=== PATIENT | male | born 1975 | race Caucasian/White ===

== ENCOUNTER 2018-02-21 03:14 | Inpatient (IN) | payer MEDICAID ==
[~2018-02-21] VITALS: Ht 162.6 cm; Wt 71.0 kg
[2018-02-21 04:28] LABS: BASOPHIL % 0.4 % (0-2); PLATELET COUNT 174 x10^3mcL (130-400); RED CELL DISTRIBUTION WIDTH 12.8 % (11.5-14.5)
[2018-02-21 04:33] LABS: CALCIUM 8.8 mg/dL (8.5-10.1); CARBON DIOXIDE 27.2 mmol/L (21-32); CHLORIDE SERUM 103 mmol/L (98-107); CREATININE SERUM 0.8 mg/dL (0.7-1.3); GFR1 > 60 mL/min; GLUCOSE SERUM 99 mg/dL (74-106); POTASSIUM SERUM 3.8 mmol/L (3.5-5.1); SODIUM SERUM 137 mmol/L (136-145)
[2018-02-21 04:39] LABS: ALKALINE PHOSPHATASE 80 U/L (46-116); ALT/SGPT 27 U/L (16-63); AST/SGOT 18 U/L (15-37); TOTAL PROTEIN, SERUM 7.5 g/dL (6.4-8.2)
[2018-02-21] MEDS ORDERED: MULTI-VITAMINS1 TAB PO (05:06)
[2018-02-21 06:01] LABS: CHOLESTEROL/HDL RATIO 2.9; MAGNESIUM 2.2 mg/dL (1.8-2.4); PHOSPHOROUS 3.5 mg/dL (2.5-4.9)
[2018-02-21 06:09] LABS: T3 TOTAL 1.17 ng/mL
[2018-02-21 06:16] LABS: FREE T4 1.02 ng/dL (0.76-1.46); FREE THYROXINE INDEX 2.6 ug/dL (1.4-4.5); T4(THYROXINE) 7.4 ug/dL (4.7-13.3)
[2018-02-21 08:08] LABS: microscopic required? NO
[2018-02-21 08:23] LABS: UA SPECIFIC GRAVITY 1.025 (1.005-1.035); urine erythrocyte NEGATIVE (NEGATIVE)
[2018-02-21 09:09] LABS: AMPHETAMINE QUAL UR POSITIVE (See below)
[2018-02-21 09:37] VITALS: BP 126/89
[2018-02-21 10:14] VITALS: BP 126/89
[2018-02-21 12:56] VITALS: BP 117/80
[2018-02-21 17:43] VITALS: BP 123/89
[2018-02-21 21:46] VITALS: BP 107/69
[2018-02-22 05:39] VITALS: BP 128/88
[2018-02-22 05:59] LABS: BASOPHIL % 0.3 % (0-2); PLATELET COUNT 152 x10^3mcL (130-400); RED CELL DISTRIBUTION WIDTH 12.7 % (11.5-14.5)
[2018-02-22 06:19] LABS: CALCIUM 8.1 mg/dL (8.5-10.1); CARBON DIOXIDE 24.2 mmol/L (21-32); CHLORIDE SERUM 107 mmol/L (98-107); CREATININE SERUM 0.8 mg/dL (0.7-1.3); GFR1 > 60 mL/min; GLUCOSE SERUM 114 mg/dL (74-106); POTASSIUM SERUM 4.2 mmol/L (3.5-5.1); SODIUM SERUM 139 mmol/L (136-145)
[2018-02-22 08:59] VITALS: BP 110/76
[2018-02-22 10:45] VITALS: BP 110/76
== END 2018-02-22 11:33 | disposition home or self-care (01) | DRG 203 ==
LOC: ED 03:14 → EDBD 03:14 → DU 05:21
PROVIDERS: Emergency Medicine; Internal Medicine
DX: M94.0 Chondrocostal junction syndrome [Tietze] (principal); E78.00 Pure hypercholesterolemia, unspecified; F15.10 Other stimulant abuse, uncomplicated; Z72.0 Tobacco use
CPT/HCPCS: 83880; 84439; 85378; J7030